=== PATIENT | female | born 1990 | race Caucasian/White ===

== ENCOUNTER 2019-02-03 08:19 | Day surgery (SDC) | payer OTHER ==
[~2019-02-03 08:19] MED LIST: CEFAZOLIN 2 GM/50 ML (PMX) 50 ML IVPB
[2019-02-03] MEDS: SOD CHLORIDE 0.9% 1,000 ML IV (10:16)
[2019-02-03] MEDS ORDERED: NEOSTIGMINE 3 MG/3 ML SYRINGE (11:53)
[2019-02-03] MEDS ORDERED: ROCURONIUM 50 MG INJ (11:53)
[2019-02-03] MEDS ORDERED: MIDAZOLAM 1 MG/ML 2 ML INJ (11:53)
[2019-02-03] MEDS ORDERED: ONDANSETRON 4 MG INJ (11:53)
[2019-02-03] MEDS ORDERED: DEXAMETHASONE 4 MG/ML 5 ML INJ (11:53)
[2019-02-03] MEDS ORDERED: GLYCOPYRROLATE 0.4 MG INJ (11:53)
[2019-02-03] MEDS ORDERED: FENTAnyl 50 MCG/ML VIAL (11:53)
[2019-02-03] MEDS ORDERED: PROPOFOL 20 ML (11:53)
[2019-02-03] MEDS ORDERED: CEFAZOLIN 1 GM INJ (11:53)
[2019-02-03] MEDS ORDERED: SUGAMMADEX SODIUM 200 MG/2 ML VIAL IV (13:24)
[2019-02-03] MEDS ORDERED: OXYCODONE/ACETAMINOPHEN (5/325) TAB PO ×2 (14:00)
[2019-02-03] MEDS ORDERED: HYDROmorphONE 1 MG/5 ML IV SYRINGE IV (14:00)
[2019-02-03] MEDS ORDERED: morphine 2 MG INJ IV ×2 (14:00)
[2019-02-03] MEDS ORDERED: FENTAnyl 50 MCG/ML VIAL IV ×2 (14:00)
[2019-02-03] MEDS ORDERED: ALBUTEROL 0.083% (NEB) 2.5 MG/3 ML AMP HHN (14:00)
[2019-02-03] MEDS ORDERED: LABETALOL HCL 20MG INJ IV (14:00)
[2019-02-03] MEDS ORDERED: DIPHENHYDRAMINE 50 MG INJ IV (14:00)
[2019-02-03] MEDS: ONDANSETRON 4 MG INJ IV (14:06)
[2019-02-03] MEDS: MEPERIDINE 25 MG INJ IV (14:06)
[2019-02-03] MEDS: HYDROmorphONE 1 MG/5 ML IV SYRINGE IV ×2 (14:06→14:11)
[2019-02-03] MEDS: HYDROCODONE/APAP (5/325) TAB PO (14:54)
== END 2019-02-03 17:15 | disposition home or self-care (01) ==
LOC: SDS 08:19
DX: K80.10 Calculus of gallbladder with chronic cholecystitis without obstruction (principal); E66.9 Obesity, unspecified
CPT/HCPCS: 47562; 84703; 88304

== ENCOUNTER 2019-02-06 23:13 | Emergency (ER) | payer OTHER ==
[2019-02-06] MEDS: SOD CHLORIDE 0.9% 1,000 ML IV (23:53)
[2019-02-06] MEDS: morphine 4 MG/ML VIAL IV (23:53)
[2019-02-06 23:54] LABS: ADD MAN DIFF? NO
[2019-02-06] MEDS: ONDANSETRON 4 MG INJ IV (23:54)
[2019-02-06 23:55] LABS: BASOPHIL # 0.1 10^3/ul (0.0-0.1); BASOPHILS % 0.7 % (0.0-2.0); EOSINOPHILS # 0.2 10^3/ul (0.0-0.5); EOSINOPHILS % 1.7 % (0.0-7.0); HEMOGLOBIN 12.7 g/dl (12.0-16.0); LYMPHOCYTES # 1.8 10^3/ul (0.8-2.9); LYMPHOCYTES % 16.4 % (15.0-51.0); MEAN CORPUSCULAR HEMOGLOBIN 30.2 pg (29.0-33.0); MEAN CORPUSCULAR HGB CONC 32.6 g/dl (32.0-37.0); MEAN CORPUSCULAR VOLUME 92.6 fl (82.0-101.0); MEAN PLATELET VOLUME 10.6 fl (7.4-10.4); MONOCYTE # 0.7 10^3/ul (0.3-0.9); MONOCYTES % 6.3 % (0.0-11.0); NEUTROPHIL # 8.2 10^3/ul (1.6-7.5); NEUTROPHILS % 74.5 % (39.0-77.0); PLATELET COUNT 353 10^3/UL (140-415); RED BLOOD COUNT 4.21 10^6/ul (4.20-5.40); RED CELL DISTRIBUTION WIDTH 12.9 % (11.5-14.5)
[2019-02-07 00:08] LABS: ADD UMIC YES; UR ASCORBIC ACID NEGATIVE (NEGATIVE); UR BILIRUBIN (Dip) NEGATIVE (NEGATIVE); UR BLOOD (Dip) 1+ mg/dL (NEGATIVE); UR CLARITY CLEAR (CLEAR); UR COLOR YELLOW (YELLOW); UR GLUCOSE (Dip) NEGATIVE (NEGATIVE); UR KETONES (Dip) TRACE mg/dL (NEGATIVE); UR LEUKOCYTE ESTERASE (Dip) 2+ Leu/ul (NEGATIVE); UR NITRITE (Dip) NEGATIVE (NEGATIVE); UR RBC 2 /HPF (0-5); UR SPECIFIC GRAVITY (Dip) 1.017 (1.003-1.030); UR SQUAMOUS EPITHELIAL CELL FEW /HPF (FEW); UR TOTAL PROTEIN (Dip) NEGATIVE (NEGATIVE); UR UROBILINOGEN (Dip) 2+ mg/dL (NEGATIVE); UR WBC 18 /HPF (0-5)
[2019-02-07 00:27] LABS: ALANINE AMINOTRANSFERASE 78 IU/L (13-69); ALBUMIN 4.1 g/dl (3.3-4.9); ALBUMIN/GLOBULIN RATIO 1.13; ALKALINE PHOSPHATASE 121 IU/L (42-121); ANION GAP 9 (5-13); ASPARTATE AMINO TRANSFERASE 47 IU/L (15-46); BILIRUBIN,INDIRECT 0.8 mg/dl (0-1.1); BILIRUBIN,TOTAL 0.8 mg/dl (0.2-1.3); BLOOD UREA NITROGEN 11 mg/dl (7-20); CALCIUM 9.4 mg/dl (8.4-10.2); CARBON DIOXIDE 29 mmol/L (21-31); CHLORIDE 102 mmol/L (97-110); CREATININE 0.61 mg/dl (0.44-1.00); Estimated GFR > 60 mL/min (>60); GLUCOSE 98 mg/dl (70-220); LIPASE 58 U/L (23-300); POTASSIUM 3.7 mmol/L (3.5-5.1); SODIUM 140 mmol/L (135-144); TOTAL PROTEIN 7.7 g/dl (6.1-8.1)
[2019-02-07] MEDS: IOHEXOL 300MG/ML 150 ML BTL (00:55)
[2019-02-07] MEDS: SOD CHLORIDE 0.9% 100 ML (00:55)
== END 2019-02-07 02:40 | disposition home or self-care (01) ==
LOC: E/R 23:13
DX: G89.18 Other acute postprocedural pain (principal)
CPT/HCPCS: 36415; 74177; 80053; 81001; 81025; 83690; 85025; 96374; 96375; 99285-25